=== PATIENT | female | born 1975 | race Caucasian/White ===

== ENCOUNTER 2016-10-24 07:44 | Emergency (ER) | payer OTHER ==
--- NOTE | 2016-10-24 10:57 | ED CLINICAL REPORT ---
Clinical Report - Physicians/Mid Levels [facility] [address] [place] [address] 10/24/2016 7:47 Patient: JURGEN MONTEZ Time Seen: 08:10. Arrived- By private vehicle. Historian- patient. HISTORY OF PRESENT ILLNESS Chief Complaint: DIARRHEA. This started about 6 days ago and is still present. It was gradual in onset and has been waxing/waning. No recent travel. She has had nausea and moderate, intermittent abdominal pain. The pain is described as generalized. No vomiting, black stools or bloody stools. She has had moderate diarrhea. This has occurred numerous times. It has been watery. No bloody diarrhea. Has not recently been camping. Has recently been on antibiotics (doxycycline from ED visit on 09/20/2016 - 10 day course). She has had contact with a sick individual. 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 The illness is described as moderate. Similar symptoms previously: Once, as bad. Diagnosis: (C. Diff colitis). Recent medical care: The patient was seen recently at this facility and another facility in the emergency department. Evaluation/treatment: x-rays, labs and antibiotic prescribed. Diagnosis: (acute bronchitis). REVIEW OF SYSTEMS Last normal menstrual period- Oct 10, 2016. Not sexually active. No fever, difficulty with urination, dark urine, headache or sore throat. No chest pain, difficulty breathing, excessive urination, skin rash or jaundice. No back pain or fainting episodes. The patient has had nasal congestion, muscle aches and dizziness. Denies current . She has had a mild cough productive of scant amounts of sputum. No blood tinged sputum or frankly bloody sputum. All systems otherwise negative, except as recorded above. PAST HISTORY PCP: [facility] in the past, but states she no longer goes to [facility] Problems: Asthma. Clostridium Diff Colitis (about 6 mo ago). Gastroesophageal Reflux Disease. Pneumonia [RuleOut]. Surgeries: no known surgeries. SOCIAL HISTORY Smoker- current status unknown. Occasional alcohol use. History of drug use: marijuana. ADDITIONAL NOTES The nursing notes have been reviewed. PHYSICAL EXAM Vital Signs: 10/24/2016 07:57 BP: 115/85. HR: 95. RR: 16. O2 saturation: 100%. Temp: 98.1 F. Pain level now: 2/10. Appearance: Alert. Oriented X3. No acute distress. Eyes: Eyes normal inspection. No pale conjunctivae or scleral icterus. ENT: Pharynx normal. No pharyngeal erythema or tonsillar exudate. The mucous membranes are not dry. Neck: Normal inspection. Neck supple. No meningeal signs. CVS: Normal heart rate and rhythm. Heart sounds normal. Pulses normal. Respiratory: No respiratory distress. Breath sounds normal. Abdomen: Soft. Mild tenderness diffusely. No mass. No rebound tenderness or guarding. Back: Normal inspection. No CVA tenderness. Skin: Skin warm and dry. Normal skin color. Normal skin turgor. Extremities: Extremities exhibit normal ROM. No lower extremity edema. Neuro: Oriented X 3. No motor deficit. LABS, X-RAYS, AND EKG Laboratory Tests: UA-Culture if indicated: (ANASTASIA: 10/24/2016 09:30) ( MsgRcvd 10/24/2016 09:58) Final results Test Result Flag Units (Reference) URINE COLOR YELLOW URINE APPEARANCE SL CLOUDY URINE GLUCOSE NEGATIVE (NEGATIVE) URINE BILIRUBIN NEGATIVE (NEGATIVE) URINE KETONE NEGATIVE (NEGATIVE) URINE SPECIFIC GRAVITY >= 1.030 (1.010-1.030) URINE PH 5.0 (5.0-8.0) URINE PROTEIN NEGATIVE (NEGATIVE) URINE UROBILINOGEN 0.2 EU/dL (0.2-1.0) URINE NITRITE NEGATIVE (NEGATIVE) URINE BLOOD NEGATIVE (NEGATIVE) URINE LEUK ESTERASE NEGATIVE (NEGATIVE) URINE RBC NONE SEEN rbc/hpf (0-1) URINE WBC 0-1 wbc/hpf (0-1) URINE EPITHELIAL CELLS 1-3 EPI/hpf (0-5) URINE BACTERIA TRACE (<1+) (NONE SEEN) URINE COMMENT CULT NOT INDICATED 15-20 CALCIUM OXALATE CRYSTALS/HPFURINE CULTURES ARE SET-UP BASED ON THE FOLLOWING CRITERIA:POSITIVE NITRITEPOSITIVE LEUKOCYTE ESTERASEGREATER THAN 10 WHITE BLOOD CELLSMODERATE (2+) OR GREATER BACTERIA Urine: (ANASTASIA: 10/24/2016 09:30) ( [facility] 10/24/2016 09:37) Final results Test Result Flag Units (Reference) URINE NEGATIVE CBC w Diff: (ANASTASIA: 10/24/2016 08:40) ( [facility] 10/24/2016 08:53) Final results Test Result Flag Units (Reference) WHITE BLOOD COUNT 10.8 K/uL (4.5-11.5) RED BLOOD COUNT 5.16 M/uL (4.00-5.20) HEMOGLOBIN 16.0 gm/dL (12.0-16.0) HEMATOCRIT 47.9 H % (36.0-46.0) MEAN CELL VOLUME 93 fL (80-100) MEAN CORPUSCULAR HGB 31 pg (26-34) MEAN CORPUSCULAR HGB CONC 33 g/dL (31-37) RED CELL DISTRIBUTION WIDTH 13.3 % (11.6-14.8) PLATELET COUNT 196 K/uL (150-400) NEUTROPHIL % 62.6 % (50-75) LYMPH % 26.9 % (25-40) MONO % 6.0 % (3-14) EOSINOPHIL % 3.9 % (0-4) BASOPHIL % 0.6 % (0-2) PT with INR: (ANASTASIA: 10/24/2016 08:50) ( [facility] 10/24/2016 09:16) Final results Test Result Flag Units (Reference) INR 0.9 (0.8-1.2) Low Intensity Therapy: INR 1.5-2.0 PT range 18.5-23.1Mod.Intensity Therapy: INR 2.0-3.0 PT range 23.1-31.5High Intensity Therapy: INR 2.5-3.5 PT range 27.4-35.5High Intensity Therapy 2: INR 3.0-4.0 PT range 31.5-39.3 CMP: (ANASTASIA: 10/24/2016 08:40) ( [facility] 10/24/2016 09:03) Final results Test Result Flag Units (Reference) GLUCOSE 112 H mg/dL (70-110) BUN 14 mg/dL (7-18) CREATININE 0.7 mg/dL (0.6-1.3) Estimated GFR >60 mL/min Estimated GFR- >60 mL/min Note: Persistent reduction over 3 months in eGFR<60 mL/min/1.73 m2 defines CKD. Patients with eGFR values>=60 mL/min/1.73 m2 may also have CKD if evidence ofpersistent proteinuria. Additional information may be foundat www.kidney.org. SODIUM 139 mmol/L (136-145) POTASSIUM 3.8 mmol/L (3.5-5.1) CHLORIDE 107 mmol/L (98-107) CARBON DIOXIDE 21 mmol/L (21-32) CALCIUM 8.5 mg/dL (8.5-10.1) TOTAL PROTEIN 7.0 g/dL (6.4-8.2) ALBUMIN 3.7 g/dL (3.3-5.0) BILIRUBIN, TOTAL 0.2 mg/dL (0.0-1.0) ALKALINE PHOSPHATASE 54 U/L (46-116) AST (SGOT) 18 U/L (15-37) ALT (SGPT) 40 U/L (12-78) LIPASE 171 U/L (73-393) AMYLASE 49 U/L (25-115) Stool WBC: (ANASTASIA: 10/24/2016 08:06) ( MsgRcvd 10/24/2016 09:35) Final results Test Result Flag Units (Reference) FECAL LEUKOCYTES DATE: 10/24/16 FECAL LEUKOCYTES: RARE CDT SOURCE STOOL C-DIFFICILE TOXIN A/B CDT RESULT:: NEGATIVE . Pulse Oximetry: 10/24/2016 07:57 O2 saturation: 100%. (FIO2 - room air). Interpretation: normal. PROGRESS AND PROCEDURES Course of Care: Normal Saline 1 liter IVPB given. Zofran 4 mg IVP given. 09:14 10/24/16. Care transferred to Dr Boone secondary to change of shift. 09:17. Dr. Jacob and I reviewed the patient's history and exam findings. I then reviewed the patient's history with her and examined her and my findings were consistent with those noted by Dr. Jacob. I followed up on the results of her stool studies with her. - MW. Patient/family counseled. Old ED records reviewed. ([facility] with 6 visits to area ED's in past approx 8 months). Disposition: Discharged. Condition: stable and improved. CLINICAL IMPRESSION Diarrhea INSTRUCTIONS Drink plenty of fluids. Warnings: Further evaluation is necessary. GENERAL WARNINGS: Return or contact your physician immediately if your condition worsens or changes unexpectedly, if not improving as expected, or if other problems arise. Understanding of the discharge instructions verbalized by patient. Follow-up with: [facility], , , [facility] [address], [place] [address] Follow up in four days. Call for the next available appointment. Follow-up with: [facility], Family Practice, , [address] [place] [address] Follow up. Call for the next available appointment. (Electronically signed by Arnulfo Boone MD 11/01/2016 1:45) Addenda for JURGEN MONTEZ VisitID: [id number] Date: 10/24/2016 10/24/2016 19:30 spoke with pt concerning stool culture. Informed of need to start antibiotics. Pt states [facility] is pharmacy of choice. 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 - 10/24/2016 19:30) 10/24/2016 20:39 Rx for CIPRO 500MG #14, 1 tablet BID x 7days, called in to [facility] in [place] ([address] (Electronically signed by Trice Perkins R.N. - 10/24/2016 20:39)
--- NOTE | 2016-10-24 10:57 | ED CLINICAL REPORT ---
Clinical Report - Physicians/Mid Levels [facility] [address] [place] [address] 10/24/2016 7:47 Patient: JURGEN MONTEZ Time Seen: 08:10. Arrived- By private vehicle. Historian- patient. HISTORY OF PRESENT ILLNESS Chief Complaint: DIARRHEA. This started about 6 days ago and is still present. It was gradual in onset and has been waxing/waning. No recent travel. She has had nausea and moderate, intermittent abdominal pain. The pain is described as generalized. No vomiting, black stools or bloody stools. She has had moderate diarrhea. This has occurred numerous times. It has been watery. No bloody diarrhea. Has not recently been camping. Has recently been on antibiotics (doxycycline from ED visit on 09/20/2016 - 10 day course). She has had contact with a sick individual. 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 The illness is described as moderate. Similar symptoms previously: Once, as bad. Diagnosis: (C. Diff colitis). Recent medical care: The patient was seen recently at this facility and another facility in the emergency department. Evaluation/treatment: x-rays, labs and antibiotic prescribed. Diagnosis: (acute bronchitis). REVIEW OF SYSTEMS Last normal menstrual period- Oct 10, 2016. Not sexually active. No fever, difficulty with urination, dark urine, headache or sore throat. No chest pain, difficulty breathing, excessive urination, skin rash or jaundice. No back pain or fainting episodes. The patient has had nasal congestion, muscle aches and dizziness. Denies current . She has had a mild cough productive of scant amounts of sputum. No blood tinged sputum or frankly bloody sputum. All systems otherwise negative, except as recorded above. PAST HISTORY PCP: [facility] in [facility] past, but states she no longer goes to [facility] Problems: Asthma. Clostridium Diff Colitis (about 6 mo ago). Gastroesophageal Reflux Disease. Pneumonia [RuleOut]. Surgeries: no known surgeries. SOCIAL HISTORY Smoker- current status unknown. Occasional alcohol use. History of drug use: marijuana. ADDITIONAL NOTES The nursing notes have been reviewed. PHYSICAL EXAM Vital Signs: 10/24/2016 07:57 BP: 115/85. HR: 95. RR: 16. O2 saturation: 100%. Temp: 98.1 F. Pain level now: 2/10. Appearance: Alert. Oriented X3. No acute distress. Eyes: Eyes normal inspection. No pale conjunctivae or scleral icterus. ENT: Pharynx normal. No pharyngeal erythema or tonsillar exudate. The mucous membranes are not dry. Neck: Normal inspection. Neck supple. No meningeal signs. CVS: Normal heart rate and rhythm. Heart sounds normal. Pulses normal. Respiratory: No respiratory distress. Breath sounds normal. Abdomen: Soft. Mild tenderness diffusely. No mass. No rebound tenderness or guarding. Back: Normal inspection. No CVA tenderness. Skin: Skin warm and dry. Normal skin color. Normal skin turgor. Extremities: Extremities exhibit normal ROM. No lower extremity edema. Neuro: Oriented X 3. No motor deficit. LABS, X-RAYS, AND EKG Laboratory Tests: UA-Culture if indicated: (ANASTASIA: 10/24/2016 09:30) ( MsgRcvd 10/24/2016 09:58) Final results Test Result Flag Units (Reference) URINE COLOR YELLOW URINE APPEARANCE SL CLOUDY URINE GLUCOSE NEGATIVE (NEGATIVE) URINE BILIRUBIN NEGATIVE (NEGATIVE) URINE KETONE NEGATIVE (NEGATIVE) URINE SPECIFIC GRAVITY >= 1.030 (1.010-1.030) URINE PH 5.0 (5.0-8.0) URINE PROTEIN NEGATIVE (NEGATIVE) URINE UROBILINOGEN 0.2 EU/dL (0.2-1.0) URINE NITRITE NEGATIVE (NEGATIVE) URINE BLOOD NEGATIVE (NEGATIVE) URINE LEUK ESTERASE NEGATIVE (NEGATIVE) URINE RBC NONE SEEN rbc/hpf (0-1) URINE WBC 0-1 wbc/hpf (0-1) URINE EPITHELIAL CELLS 1-3 EPI/hpf (0-5) URINE BACTERIA TRACE (<1+) (NONE SEEN) URINE COMMENT CULT NOT INDICATED 15-20 CALCIUM OXALATE CRYSTALS/HPFURINE CULTURES ARE SET-UP BASED ON THE FOLLOWING CRITERIA:POSITIVE NITRITEPOSITIVE LEUKOCYTE ESTERASEGREATER THAN 10 WHITE BLOOD CELLSMODERATE (2+) OR GREATER BACTERIA Urine: (ANASTASIA: 10/24/2016 09:30) ( [facility] 10/24/2016 09:37) Final results Test Result Flag Units (Reference) URINE NEGATIVE CBC w Diff: (ANASTASIA: 10/24/2016 08:40) ( [facility] 10/24/2016 08:53) Final results Test Result Flag Units (Reference) WHITE BLOOD COUNT 10.8 K/uL (4.5-11.5) RED BLOOD COUNT 5.16 M/uL (4.00-5.20) HEMOGLOBIN 16.0 gm/dL (12.0-16.0) HEMATOCRIT 47.9 H % (36.0-46.0) MEAN CELL VOLUME 93 fL (80-100) MEAN CORPUSCULAR HGB 31 pg (26-34) MEAN CORPUSCULAR HGB CONC 33 g/dL (31-37) RED CELL DISTRIBUTION WIDTH 13.3 % (11.6-14.8) PLATELET COUNT 196 K/uL (150-400) NEUTROPHIL % 62.6 % (50-75) LYMPH % 26.9 % (25-40) MONO % 6.0 % (3-14) EOSINOPHIL % 3.9 % (0-4) BASOPHIL % 0.6 % (0-2) PT with INR: (ANASTASIA: 10/24/2016 08:50) ( [facility] 10/24/2016 09:16) Final results Test Result Flag Units (Reference) INR 0.9 (0.8-1.2) Low Intensity Therapy: INR 1.5-2.0 PT range 18.5-23.1Mod.Intensity Therapy: INR 2.0-3.0 PT range 23.1-31.5High Intensity Therapy: INR 2.5-3.5 PT range 27.4-35.5High Intensity Therapy 2: INR 3.0-4.0 PT range 31.5-39.3 CMP: (ANASTASIA: 10/24/2016 08:40) ( [facility] 10/24/2016 09:03) Final results Test Result Flag Units (Reference) GLUCOSE 112 H mg/dL (70-110) BUN 14 mg/dL (7-18) CREATININE 0.7 mg/dL (0.6-1.3) Estimated GFR >60 mL/min Estimated GFR- >60 mL/min Note: Persistent reduction over 3 months in eGFR<60 mL/min/1.73 m2 defines CKD. Patients with eGFR values>=60 mL/min/1.73 m2 may also have CKD if evidence ofpersistent proteinuria. Additional information may be foundat www.kidney.org. SODIUM 139 mmol/L (136-145) POTASSIUM 3.8 mmol/L (3.5-5.1) CHLORIDE 107 mmol/L (98-107) CARBON DIOXIDE 21 mmol/L (21-32) CALCIUM 8.5 mg/dL (8.5-10.1) TOTAL PROTEIN 7.0 g/dL (6.4-8.2) ALBUMIN 3.7 g/dL (3.3-5.0) BILIRUBIN, TOTAL 0.2 mg/dL (0.0-1.0) ALKALINE PHOSPHATASE 54 U/L (46-116) AST (SGOT) 18 U/L (15-37) ALT (SGPT) 40 U/L (12-78) LIPASE 171 U/L (73-393) AMYLASE 49 U/L (25-115) Stool WBC: (ANASTASIA: 10/24/2016 08:06) ( MsgRcvd 10/24/2016 09:35) Final results Test Result Flag Units (Reference) FECAL LEUKOCYTES DATE: 10/24/16 FECAL LEUKOCYTES: RARE CDT SOURCE STOOL C-DIFFICILE TOXIN A/B CDT RESULT:: NEGATIVE . Pulse Oximetry: 10/24/2016 07:57 O2 saturation: 100%. (FIO2 - room air). Interpretation: normal. PROGRESS AND PROCEDURES Course of Care: Normal Saline 1 liter IVPB given. Zofran 4 mg IVP given. 09:14 10/24/16. Care transferred to Dr Boone secondary to change of shift. 09:17. Dr. Jacob and I reviewed the patient's history and exam findings. I then reviewed the patient's history with her and examined her and my findings were consistent with those noted by Dr. Jacob. I followed up on the results of her stool studies with her. - MW. Patient/family counseled. Old ED records reviewed. ([facility] with 6 visits to area ED's in past approx 8 months). Disposition: Discharged. Condition: stable and improved. CLINICAL IMPRESSION Diarrhea INSTRUCTIONS Drink plenty of fluids. Warnings: Further evaluation is necessary. GENERAL WARNINGS: Return or contact your physician immediately if your condition worsens or changes unexpectedly, if not improving as expected, or if other problems arise. Understanding of the discharge instructions verbalized by patient. Follow-up with: [facility], , , [facility] [address], [place] [address] Follow up in four days. Call for the next available appointment. Follow-up with: [facility], Family Practice, , [address] [place] [address] Follow up. Call for the next available appointment. (Electronically signed by Arnulfo Boone MD 11/01/2016 1:45) Addenda for JURGEN MONTEZ VisitID: [id number] Date: 10/24/2016 10/24/2016 19:30 spoke with pt concerning stool culture. Informed of need to start antibiotics. Pt states [facility] is pharmacy of choice. 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 - 10/24/2016 19:30) 10/24/2016 20:39 Rx for CIPRO 500MG #14, 1 tablet BID x 7days, called in to [facility] in [place] ([address] (Electronically signed by Trice ePrkins R.N. - 10/24/2016 20:39)
--- NOTE | 2016-10-24 10:58 | ED ORDER SUMMARY ---
..... Patient: JURGEN MONTEZ OrderSheet [facility] VisitID: [id number] [address] [place] [address] 40y, F Registration Date/Time: 10/24/2016 ORDER SHEET Weight: 81.6 kg (stated) Allergies: No Known Drug Allergy GENERAL ORDERS: CBC w Diff Ur[facility] ([facility] (Ack 8:26 LNations ER Tech1) (8:46 MWinterer R.N.) CMP Urgent (:[facility]/2016 [facility] (Ack 8:26 LNations ER Tech1) (8:46 MWinterer R.N.) UA-Culture if indicated Urgent (:10/24/2016 [facility] DO) (Ack 8:26 LNations ER Tech1) (9:31 JBoardley R.N.) Amylase Urgent (:10/24/2016 [facility]) (Ack 8:26 LNations ER Tech1) (8:46 MWinterer R.N.) Lipase Urgent (:10/24/2016 [facility]) (Ack 8:26 LNations ER Tech1) (8:46 MWinterer R.N.) PT with INR Urgent (:10/24/2016 [facility]) (Ack 8:26 LNations ER Tech1) (8:46 MWinterer R.N.) Urine Urgent (:10/24/2016 [facility]) (Ack 8:26 LNations ER Tech1) (9:30 JBoardley R.N.) Stool for C. Difficile Urgent (:10/24/2016 [facility]) (Ack 8:26 LNations ER Tech1) (8:46 MWinterer R.N.) Stool WBC Urgent (:10/24/2016 [facility] DO) (Ack 8:27 LNations ER Tech1) (8:46 MWinterer R.N.) Culture, Stool Urgent (:10/24/2016 [facility]) (Ack 8:27 LNations ER Tech1) (8:46 MWinterer R.N.) NPO (08:23 10/24/2016 [facility] DO) (8:24 MWinterer R.N.) - (Stool guaiac) (09:59 10/24/2016 [facility]) (Ack 10:11 Letty) (10:53 NHouse ER Tech1) Ova & Parasite Exam Urgent (10:00 10/24/2016 [facility]) (Ack 10:11 Letty) (10:48 NHouse ER Tech1) Giardia EIA Urgent (10:00 10/24/2016 [facility]) (Ack 10:11 Letty) (10:48 MIouse ER Tech1) MEDICATION ORDERS: IV FLUIDS: IV NS : initial bolus 500 mL (1000 mL/hr), then 500 mL/hr for X2 (NOW) (08:22 10/24/2016 [facility]) (Ack 8:24 MWinterer R.N.) (8:47 MWinterer R.N.) Zofran IV 4 mg (NOW) (08:23 10/24/2016 [facility]) (Ack 8:24 MWinterer R.N.) (8:47 MWinterer R.N.) ORDER SHEET NOTES: [Electronically signed by Marie Bolton R.N. (11:38 10/24/2016)] [Electronically signed by Arnulfo Boone MD (01:45 11/01/2016)] [Electronically locked/signed by Marie Bolton R.N. (11:38 10/24/2016)]
--- NOTE | 2016-10-24 10:58 | ED ORDER SUMMARY ---
..... Patient: JURGEN MONTEZ OrderSheet [facility] VisitID: [id number] [place] [address] 40y, F Registration Date/Time: 10/24/2016 ORDER SHEET Weight: 81.6 kg (stated) Allergies: No Known Drug Allergy GENERAL ORDERS: CBC w Diff Urgent ([facility] (Ack 8:26 LNations ER Tech1) (8:46 MWinterer R.N.) CMP Ur[facility] (Ack 8:26 LNations ER Tech1) (8:46 MWinterer R.N.) UA-Culture if indicated Urgent (:10/24/2016 [facility] DO) (Ack 8:26 LNations ER Tech1) (9:31 JBoardley R.N.) Amylase Urgent (:10/24/2016 [facility]) (Ack 8:26 LNations ER Tech1) (8:46 MWinterer R.N.) Lipase Urgent (:10/24/2016 [facility]) (Ack 8:26 LNations ER Tech1) (8:46 MWinterer R.N.) PT with INR Urgent (:10/24/2016 [facility]) (Ack 8:26 LNations ER Tech1) (8:46 MWinterer R.N.) Urine Urgent (:10/24/2016 [facility]) (Ack 8:26 LNations ER Tech1) (9:30 JBoardley R.N.) Stool for C. Difficile Urgent (:10/24/2016 [facility]) (Ack 8:26 LNations ER Tech1) (8:46 MWinterer R.N.) Stool WBC Urgent (:10/24/2016 [facility] DO) (Ack 8:27 LNations ER Tech1) (8:46 MWinterer R.N.) Culture, Stool Urgent (:10/24/2016 [facility]) (Ack 8:27 LNations ER Tech1) (8:46 MWinterer R.N.) NPO (08:23 10/24/2016 [facility] DO) (8:24 MWinterer R.N.) - (Stool guaiac) (09:59 10/24/2016 [facility]) (Ack 10:11 Letty) (10:53 NHouse ER Tech1) Ova & Parasite Exam Urgent (10:00 10/24/2016 [facility]) (Ack 10:11 Letty) (10:48 NHouse ER Tech1) Giardia EIA Urgent (10:00 10/24/2016 [facility]) (Ack 10:11 Letty) (10:48 UTouse ER Tech1) MEDICATION ORDERS: IV FLUIDS: IV NS : initial bolus 500 mL (1000 mL/hr), then 500 mL/hr for X2 (NOW) (08:22 10/24/2016 [facility]) (Ack 8:24 MWinterer R.N.) (8:47 MWinterer R.N.) Zofran IV 4 mg (NOW) (08:23 10/24/2016 [facility]) (Ack 8:24 MWinterer R.N.) (8:47 MWinterer R.N.) ORDER SHEET NOTES: [Electronically signed by Marie Bolton R.N. (11:38 10/24/2016)] [Electronically signed by Arnulfo Boone MD (01:45 11/01/2016)] [Electronically locked/signed by Marie Bolton R.N. (11:38 10/24/2016)]
--- NOTE | 2016-10-24 10:58 | ED NURSING NOTES ---
Clinical Report - Nurses [facility] [address] [place] [address] 10/24/2016 7:47 Patient: JURGEN MONTEZ TRIAGE Acuity: LEVEL 3. Chief Complaint: ABDOMINAL PAIN and DIARRHEA. Alert. No acute distress. SEPSIS SCREEN: Sepsis Screen. Negative (no infection suspected/documented). --08:01 Isamar Partida R.N. 07:57 10/24/16. BP: 115/85. HR: 95. RR: 16. O2 saturation: 100%. Temp: 98.1 F (oral). Pain level now: 2/10. --08:01 Isamar Partida R.N. Weight: 81.6 kg stated. Height/Length: 62 inches Per Patient. BMI: 32.9. --07:59 Isamar Partida R.N. Medications None. --07:59 Isamar Partida R.N. Medication/allergy information source: the patient. --08: Isamar Partida R.N. Allergies No Known Drug Allergy. --07:59 Isamar Partida R.N. History Arrived by private vehicle. Historian: patient. Unaccompanied. Primary physician (none). Onset. (6 days ago). Describes the quality as cramping. Relates location as generalized across abdomen. Notes pain level as 2/10 on arrival. She has had nausea. Reports last BM was this am. 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 PAST MEDICAL HX: Last normal menstrual period- Oct 10 2016. Not sexually active. SOCIAL HX: Current every day heavy tobacco smoker- 1 pack per day. Occasional alcohol use. History of heavy drug use: marijuana. FALL RISK ASSESSMENT: Fall risk assessment completed. No fall risk identified. NUTRITIONAL RISK ASSESSMENT: The nutritional risk assessment revealed no deficiencies. FUNCTIONAL ASSESSMENT: Functional assessment: no impairments noted. LEARNING NEEDS ASSESSMENT: The learning needs assessment revealed no barriers. SKIN INTEGRITY ASSESSMENT: Skin integrity risk assessment completed. No skin integrity risk identified. --08:01 Isamar Partida R.N. PROBLEMS: Bronchitis. Asthma. --07:59 Isamar Partida R.N. Gastroesophageal Reflux Disease [RuleOut]. --07:59 Isamar Partida R.N. Assessment GENERAL / NEURO / PSYCH: Alert. Oriented X 4. Appears in no acute distress. Patient appears calm and cooperative. RESPIRATORY: Respirations not labored. CVS: Capillary refill less than 2 seconds. GI / : Abdomen soft and nontender. SKIN: Mucous membranes are pink. Skin is warm and dry. --08:01 Isamar Partida R.N. Interventions ID band on patient. To treatment room. --08:01 Isamar Partida R.N. PHYSICAL ASSESSMENT 08:02 10/24/16. Ambulatory to room. GENERAL / NEURO / PSYCH: Alert. Oriented X 4. Appears in no acute distress. HEENT: Mucous membranes are pink. RESPIRATORY: Respirations not labored. CVS: Capillary refill less than 2 seconds. GI / : Abdomen soft and nontender. SKIN: Skin is warm and dry. --08:02 Isamar Partida R.N. NURSING PROGRESS NOTES 08:02 10/24/16. Patient gowned. Two patient identifiers checked. Call light placed in reach. Side rails up x 1. Bed placed in lowest position. Brakes of bed on. Patient ready for evaluation- chart flagged and ED physician notified. --08:02 Isamar Partida R.N. 08:06. Patient ID band checked for patient name and birthdate: patient confirmed. Stool specimen sent for testing of ova and parasites. Labeled in the presence of the patient. --08:15 Marie Bolton R.N. 08:46 10/24/2016 Site #1 started via IV in the right hand with an 22g angiocath, with aseptic technique and good blood return; two attempts. Blood drawn: rainbow set. Labeled in the presence of the patient and sent to the lab. --08:46 Isamar Partida R.N. 08:47 10/24/2016 Started bag #1 1000 mL IV Fluids IV NS (Saline); at 999 mL/hr over 30 minute(s) via site #1 via IV pump. Allergies verified and confirmed 5 rights. IV patency established. IV site checked: no pain, redness, or swelling. IV flushed thoroughly pre- and post-medication administration. --08:47 Isamar Partida R.N. 08:47 10/24/2016 Zofran (Ondansetron HCl) IVP 4 mg given over 1 minute(s) via site #1. Allergies verified and confirmed 5 rights. IV patency established. IV site checked: no pain, redness, or swelling. IV flushed thoroughly pre- and post-medication administration. IVP given by RN. --08:47 Isamar Partida R.N. 09:13 10/24/2016 IV Fluids IV NS via IV site #1 Rate Changed: bag #1 decreased to 500 mL/hr via IV pump. IV patency established. IV site checked: no pain, redness, or swelling. IV flushed thoroughly. Confirmed 5 Rights. --09:13 Isamar Partida R.N. 09:27 10/24/16. ( Pt up to void to provide urine specimen). --09:27 Zack Mills R.N. 09:31 10/24/16. Patient ID band checked for patient name and birthdate: patient confirmed. Clean catch urine collected with return of yellow-colored urine; sample sent to lab for urinalysis, culture and HCG. Specimen labeled in the presence of the patient. --09:31 Zack Mills R.N. 10:16 10/24/2016 IV Fluids IV NS Discontinued: bag #1 infused. Total amount infused: 1000 mL. IV patency established. IV site checked: no pain, redness, or swelling. IV flushed thoroughly. --11:07 Marie Bolton R.N. 10:57 10/24/2016 Site #1 removed upon discharge. Bandage applied. --11:07 Marie Bolton R.N. DISPOSITION / DISCHARGE 11:10/24/16. Departure time: 1103. Condition at departure: improved and stable. Discharge instructions provided and reviewed with the patient. Patient verbalized understanding. Written instructions provided in Bulgarian. The patient was discharged by the physician. She was discharged home. She left the Emergency Department ambulatory and via private vehicle. Patient driving. --11:07 Marie Bolton R.N. 11:10/24/16. BP: 117/66. HR: 74. RR: 17. O2 saturation: 97%. Temp: 98.0 F. Pain level now 0/10. --11:07 Marie Bolton R.N. Locked/Released at 10/24/2016 11:38 by Marie Bolton R.N.
--- NOTE | 2016-11-01 01:45 | ED DISCHARGE INSTRUCTIONS ---
Patient: JURGEN MONTEZ General Instructions [facility] VisitID: [id number] [address] [place] [address] 40y, F Registration Date/Time: 10/24/2016 Diarrhea INSTRUCTIONS Drink plenty of fluids. Warnings: Further evaluation is necessary. GENERAL WARNINGS: Return or contact your physician immediately if your condition worsens or changes unexpectedly, if not improving as expected, or if other problems arise. Understanding of the discharge instructions verbalized by patient. Follow-up with: [facility], , , [address], [facility], [address] Follow up in four days. Call for the next available appointment. Follow-up with: [facility], , [address] [place] [address], [place] [address] Follow up. Call for the next available appointment. ADDITIONAL INFORMATION Diarrhea, Uncertain Cause (Adult, Report Pending) Diarrhea has several possible causes. Commonstomach fluis caused by a virus. Food poisoning, bacteria or parasites are other causes for diarrhea. Only diarrhea caused by bacteria or parasites requires treatment with an antibiotic. Diarrhea from a virus or food poisoning improves with simple home treatment. A stool sample is needed to make the diagnosis of an infection with bacteria or parasites. Up to three stool specimens may be required to diagnose This may take up to two days to get the result. It may be necessary to wait until the stool test is complete to make the diagnosis and select the best antibiotic to prescribe. Home Care: If symptoms are severe, rest at home for the next 24 hours or until you are feeling better. You may use acetaminophen (Tylenol) or ibuprofen (Motrin, Advil) to control fever, unless another medicine was prescribed. [NOTE: If you have chronic liver or kidney disease or ever had a stomach ulcer or GI bleeding, talk with your doctor before using these medicines.] (Aspirin should never be used in anyone under 18 years of age who is ill with a fever. It may cause severe liver damage.) Avoid tobacco, caffeine and alcohol, which may worsen your symptoms. If anti-diarrhea medicine was prescribed, take this only as directed. Sometimes anti-diarrhea medicine can make your condition worse if the cause is an infectious diarrhea. Therefore, anti-diarrhea medicine should not be taken for this condition unless advised by your doctor. During The First 12-24 Hours follow the diet below: BEVERAGES: Sport drinks like Gatorade, soft drinks without caffeine; padmini uvaldo, mineral water (plain or flavored), decaffeinated tea and coffee. SOUPS: Clear broth, consomm and bouillon DESSERTS: Plain gelatin (Jell-O), popsicles and fruit juice bars. During The Next 24 Hours you may add the following to the above: Hot cereal, plain toast, bread, rolls, crackers Plain noodles, rice, mashed potatoes, chicken noodle or rice soup Unsweetened canned fruit (avoid pineapple), bananas Limit fat intake to less than 15 grams per day by avoiding margarine, butter, oils, mayonnaise, sauces, gravies, fried foods, peanut butter, meat, poultry and fish. Limit fiber; avoid raw or cooked vegetables, fresh fruits (except bananas) and bran cereals. Limit caffeine and chocolate. No spices or seasonings except salt. During The Next 24 Hours Gradually resume a normal diet, as you feel better and your symptoms lessen. Follow Up with your doctor or as advised if you are not improving over the next two days. If you were asked to bring a specimen from home, bring the sample on the day of collection. You may call in 2 days (or as directed) for the results. Get Prompt Medical Attention if any of the following occur: Increasing abdominal pain or constant lower right abdominal pain Continued vomiting (unable to keep liquids down) Frequent diarrhea (more than 5 times a day) Blood in vomit or stool (black or red color) Reduced oral intake Dark urine, reduced urine output Weakness, dizziness, fainting Drowsiness, confusion, stiff neck or seizure Fever of 100.4F (38C) oral or higher, not better with fever medication New rash You have been given the following additional information: Diarrhea, Unk Cause (Adult) Report Pendg (Electronically signed by Arnulfo Boone MD 11/01/2016 1:45)
--- NOTE | 2016-11-01 01:45 | ED MAR SUMMARY ---
..... Medication Administration Record [facility] [address] [place] [address] Patient: JURGEN MONTEZ Visit ID: [id number] 40y, F Weight: 81.6 kg Height/Length: 62 in BMI: 32.9 ALLERGIES: No Known Drug Allergy Start 08:47 10/24/2016 Isamar Partida RMarcus, Stop 10:16 10/24/2016 Marie Bolton R.N. Medication Administered: IV NS (SALINE), Dose: IV Fluids over 30 minute(s), Rate: 999 mL/hr, Dispensed: 1000 mL bag, Site: #1 right hand. Medication Ordered: IV NS : initial bolus 500 mL (1000 mL/hr), then 500 mL/hr for X2 (NOW). Given 08:47 10/24/2016 Isamar Partida RMarcus Medication Administered: ZOFRAN [IVP] (ONDANSETRON HCL), Dose: 4 mg IVP over 1 minute(s), Site: #1 right hand. Medication Ordered: Zofran IV 4 mg (NOW).
--- NOTE | 2016-11-01 01:45 | ED MAR SUMMARY ---
..... Medication Administration Record [facility] [address] [place] [address] Patient: JURGEN MONTEZ Visit ID: [id number] 40y, F Weight: 81.6 kg Height/Length: 62 in BMI: 32.9 ALLERGIES: No Known Drug Allergy Start 08:47 10/24/2016 Isamar Partida RMarcus, Stop 10:16 10/24/2016 Marie Bolton R.N. Medication Administered: IV NS (SALINE), Dose: IV Fluids over 30 minute(s), Rate: 999 mL/hr, Dispensed: 1000 mL bag, Site: #1 right hand. Medication Ordered: IV NS : initial bolus 500 mL (1000 mL/hr), then 500 mL/hr for X2 (NOW). Given 08:47 10/24/2016 Isamar Partida RMarcus Medication Administered: ZOFRAN [IVP] (ONDANSETRON HCL), Dose: 4 mg IVP over 1 minute(s), Site: #1 right hand. Medication Ordered: Zofran IV 4 mg (NOW).
--- NOTE | 2016-11-01 01:45 | ED DISCHARGE INSTRUCTIONS ---
Patient: JURGEN MONTEZ General Instructions [facility] VisitID: [id number] [address] [place] [address] 40y, F Registration Date/Time: 10/24/2016 Diarrhea INSTRUCTIONS Drink plenty of fluids. Warnings: Further evaluation is necessary. GENERAL WARNINGS: Return or contact your physician immediately if your condition worsens or changes unexpectedly, if not improving as expected, or if other problems arise. Understanding of the discharge instructions verbalized by patient. Follow-up with: [facility], , , [address], [facility], [address] Follow up in four days. Call for the next available appointment. Follow-up with: [facility], [facility], , [address] [place] [address], [place] [address] Follow up. Call for the next available appointment. ADDITIONAL INFORMATION Diarrhea, Uncertain Cause (Adult, Report Pending) Diarrhea has several possible causes. Commonstomach fluis caused by a virus. Food poisoning, bacteria or parasites are other causes for diarrhea. Only diarrhea caused by bacteria or parasites requires treatment with an antibiotic. Diarrhea from a virus or food poisoning improves with simple home treatment. A stool sample is needed to make the diagnosis of an infection with bacteria or parasites. Up to three stool specimens may be required to diagnose This may take up to two days to get the result. It may be necessary to wait until the stool test is complete to make the diagnosis and select the best antibiotic to prescribe. Home Care: If symptoms are severe, rest at home for the next 24 hours or until you are feeling better. You may use acetaminophen (Tylenol) or ibuprofen (Motrin, Advil) to control fever, unless another medicine was prescribed. [NOTE: If you have chronic liver or kidney disease or ever had a stomach ulcer or GI bleeding, talk with your doctor before using these medicines.] (Aspirin should never be used in anyone under 18 years of age who is ill with a fever. It may cause severe liver damage.) Avoid tobacco, caffeine and alcohol, which may worsen your symptoms. If anti-diarrhea medicine was prescribed, take this only as directed. Sometimes anti-diarrhea medicine can make your condition worse if the cause is an infectious diarrhea. Therefore, anti-diarrhea medicine should not be taken for this condition unless advised by your doctor. During The First 12-24 Hours follow the diet below: BEVERAGES: Sport drinks like Gatorade, soft drinks without caffeine; padmini uvaldo, mineral water (plain or flavored), decaffeinated tea and coffee. SOUPS: Clear broth, consomm and bouillon DESSERTS: Plain gelatin (Jell-O), popsicles and fruit juice bars. During The Next 24 Hours you may add the following to the above: Hot cereal, plain toast, bread, rolls, crackers Plain noodles, rice, mashed potatoes, chicken noodle or rice soup Unsweetened canned fruit (avoid pineapple), bananas Limit fat intake to less than 15 grams per day by avoiding margarine, butter, oils, mayonnaise, sauces, gravies, fried foods, peanut butter, meat, poultry and fish. Limit fiber; avoid raw or cooked vegetables, fresh fruits (except bananas) and bran cereals. Limit caffeine and chocolate. No spices or seasonings except salt. During The Next 24 Hours Gradually resume a normal diet, as you feel better and your symptoms lessen. Follow Up with your doctor or as advised if you are not improving over the next two days. If you were asked to bring a specimen from home, bring the sample on the day of collection. You may call in 2 days (or as directed) for the results. Get Prompt Medical Attention if any of the following occur: Increasing abdominal pain or constant lower right abdominal pain Continued vomiting (unable to keep liquids down) Frequent diarrhea (more than 5 times a day) Blood in vomit or stool (black or red color) Reduced oral intake Dark urine, reduced urine output Weakness, dizziness, fainting Drowsiness, confusion, stiff neck or seizure Fever of 100.4F (38C) oral or higher, not better with fever medication New rash You have been given the following additional information: Diarrhea, Unk Cause (Adult) Report Pendg (Electronically signed by Arnulfo Boone MD 11/01/2016 1:45)
--- NOTE | 2016-11-01 01:45 | ED MED RECONCILIATION SUMMARY ---
Patient: JURGEN MONTEZ Medication Reconciliation Report [facility] VisitID: [id number] [address] [place] [address] 40y, F Registration Date/Time: 10/24/2016 Weight: 81.6 kg Height/Length: 62 in. BMI: 32.9 ALLERGIES: No Known Drug Allergy The patient's Home Medications are listed below: NONE. The source(s) of the original Home Medication information: patient The following Medications were given to the patient in the Emergency Department: IV NS IV Fluids bolus 0, then 999 mL/hr, administered: 10/24/2016 8:47:00 AM Zofran [IVP] IVP 4 mg, administered: 10/24/2016 8:47:00 AM The following Medications were prescribed to the patient: None.
--- NOTE | 2016-11-01 01:45 | ED MED RECONCILIATION SUMMARY ---
Patient: JURGEN MONTEZ Medication Reconciliation Report [facility] VisitID: [id number] [address] [place] [address] 40y, F Registration Date/Time: 10/24/2016 Weight: 81.6 kg Height/Length: 62 in. BMI: 32.9 ALLERGIES: No Known Drug Allergy The patient's Home Medications are listed below: NONE. The source(s) of the original Home Medication information: patient The following Medications were given to the patient in the Emergency Department: IV NS IV Fluids bolus 0, then 999 mL/hr, administered: 10/24/2016 8:47:00 AM Zofran [IVP] IVP 4 mg, administered: 10/24/2016 8:47:00 AM The following Medications were prescribed to the patient: None.
== END 2016-10-24 11:03 | disposition home or self-care (01) ==
LOC: ED SRH 07:44
DX: R19.7 Diarrhea, unspecified (principal); K21.9 Gastro-esophageal reflux disease without esophagitis
CPT/HCPCS: 90004; 90074; 90100; 90112; 90124; 90455; 92235; 92530; 92755; 93070; 94060; 95059; 99262; 99784